=== PATIENT | male | born 1955 | race Caucasian/White ===

== ENCOUNTER → 2020-09-28 09:51 | Outpatient (CLI) | payer MEDICARE, OTHER, SELFPAY ==
--- NOTE | 2020-09-28 10:56 | DI.CT.S_ITS ---
PROCEDURE: CT UE LT WO CON INDICATIONS: Primary osteoarthritis, left shoulder pain TECHNIQUE: Noncontrast 1-1.5 mm thick sections acquired from the acromioclavicular joint to the inferior scapula, with coronal and sagittal reformatting. COMPARISON: [facility], CR, SHOULDER 1VW (LT), 11/05/2009, 13:12. [facility], CR, SHOULDER 1VW (LT), 11/05/2009, 14:02. [facility], CR, SHOULDER MIN 2VW (LT), 11/06/2009, 11:04. [facility], CR, XR SHOULDER 2+ VIEWS BILATERAL, 09/06/2020, 15:57. FINDINGS: Image quality: Excellent. Bones: Postsurgical changes are seen from prior proximal humeral fracture fixation with a lateral plate and screw construct. The metallic hardware is intact. No acute fracture is seen. Degenerative changes are seen at the glenohumeral joint with marginal osteophyte formation, including abutting osteophytes inferiorly that could contribute to osseous impingement. Mild osseous irregularity in the glenoid rim and at the base of the coracoid are most likely related to remote prior trauma. Moderate degenerative changes are seen in the acromioclavicular joint with small osseous fragments at the margins of the joint. Soft tissues: There is a small glenohumeral effusion. Small loose ossifications are seen posterior and superior to the humeral head and within the superior subscapularis recess that may represent small intra-articular loose bodies. The articular cartilages, ligaments, and tendons are not well evaluated with CT. The rotator cuff musculature is normal in bulk. IMPRESSION: 1. Postsurgical changes again seen at the proximal humerus with intact hardware. No acute osseous abnormality is seen. 2. Moderate to severe glenohumeral osteoarthrosis. Moderate acromioclavicular osteoarthrosis. 3. Small glenohumeral effusion with multiple osseous intra-articular loose bodies. Dictated by: Dean Rolle M.D. on 09/28/2020 at 10:58 Approved by: Dean Rolle M.D. on 09/28/2020 at 11:08
== END ==
PROVIDERS: PCP Nurse Practitioner; Referring Provider Nurse Practitioner; Visit Provider Orthopaedic Surgery
DX: M19.012 Primary osteoarthritis, left shoulder (principal); M25.412 Effusion, left shoulder; M24.012 Loose body in left shoulder
CPT/HCPCS: 73200

== ENCOUNTER → 2020-10-17 08:05 | Outpatient (CLI) | payer MEDICARE, OTHER, SELFPAY ==
[2020-10-17 08:56] LABS: Add Manual Diff / Slide Review NO; Basophils Absolute Auto 100 /uL (0-100); Basophils Percent Auto 1.1 % (0-2); Eosinophils Absolute Auto 100 /uL (0-450); Eosinophils Percent Auto 2.8 % (2-4); Hematocrit 41.3 % (41-53); Hemoglobin 14.1 g/dL (13.5-17.5); Lymphocytes Absolute Auto 1300 /uL (1100-4500); Lymphocytes Percent Auto 28.9 % (25-40); Mean Corpuscular HGB Conc 34.1 % (30-36); Mean Corpuscular Volume 90.9 fL (80-100); Monocytes Absolute Auto 400 /uL (0-900); Neutrophils Absolute Auto 2600 /uL (1500-7000); Neutrophils Percent Auto 59.2 % (50-75); Platelet Count 204 X10^3/uL (150-400); Red Blood Cell Count 4.54 X10^6/uL (4.5-5.9); Red Cell Distribution Width 12.7 % (11.6-14.8); White Blood Cell Count 4.5 X10^3/uL (4.5-11.0)
[2020-10-17 09:15] LABS: BUN Creatinine Ratio 20.8 (6-22); Blood Urea Nitrogen 22 mg/dL (9-20); Calcium 9.5 mg/dL (8.4-10.2); Carbon Dioxide 31 mmol/L (22-32); Chloride 103 mmol/L (98-107); Estimated Glomerular Filt Rate > 60.0 mL/min (>60); Glucose 143 mg/dL (80-110); HEMOLYSIS < 15 (0-50); Potassium 3.7 mmol/L (3.4-5.1); Sodium 137 mmol/L (137-145)
== END ==
PROVIDERS: PCP Nurse Practitioner; Referring Provider Orthopaedic Surgery; Visit Provider Orthopaedic Surgery
DX: Z01.818 Encounter for other preprocedural examination (principal); R73.9 Hyperglycemia, unspecified; Z01.812 Encounter for preprocedural laboratory examination
CPT/HCPCS: 36415; 80048; 83036; 85025; 93005; 93010

== ENCOUNTER → 2020-10-22 08:56 | Outpatient (CLI) | payer MEDICARE, OTHER, SELFPAY ==
[2020-10-22 11:23] LABS: COVID19 -Nasal RAPID Negative (Negative)
== END ==
PROVIDERS: PCP Nurse Practitioner; Visit Provider Nurse Practitioner Family
DX: Z20.822 Contact with and (suspected) exposure to COVID-19 (principal)
CPT/HCPCS: 87635

== ENCOUNTER 2020-10-24 06:05 | Day surgery (SDC) | payer MEDICARE, OTHER, SELFPAY ==
[2020-10-24] VITALS (14 sets, daily range): BP systolic 102–144; BP diastolic 54–85; PULSE 66–88; RESP 12–83; TEMP 36–37.1; O2SAT 91–98; BMI 35.6
--- NOTE | 2020-10-24 06:35 | DI.RAD.S_ITS ---
PROCEDURE: XR SHOULDER LT 1V INDICATIONS: post op total shoulder TECHNIQUE: 2 views of the shoulder were acquired. COMPARISON: [facility], CR, XR KNEE 4+ VIEWS RIGHT, 09/07/2020, 14:41. [facility] [place], CR, XR SHOULDER 2+ VIEWS BILATERAL, 09/06/2020, 15:57. FINDINGS: Bones: No fractures or dislocations. No suspicious bony lesions. Visualized ribs appear intact. The previously present fixation plate at the proximal left humerus has been removed and a left humeral head arthroplasty device has been placed. Moderate osteoarthritis at the acromioclavicular joint is again noted. No fracture of [place] bone is present. Soft tissues: No suspicious soft tissue calcifications. IMPRESSION: Expected postoperative appearance after removal of a prior fixation plate and placement of new humeral head arthroplasty at the left shoulder. Osteoarthritis at the AC joint is stable over time, moderate in severity. Dictated by: Adi Russo M.D. on 10/24/2020 at 11:53 Approved by: Adi Russo M.D. on 10/24/2020 at 11:54
[2020-10-24] MEDS: LACTATED RINGERS 1,000 ML 42 ML IV ×2 (07:05→08:50)
[2020-10-24] MEDS: ACETAMINOPHEN 325 MG TABLET 975 MG PO (07:09)
[2020-10-24] MEDS: PREGABALIN 75 MG CAPSULE PO (07:09)
[2020-10-24] MEDS: CELECOXIB 200 MG CAPSULE PO (07:09)
--- NOTE | 2020-10-24 07:33 | PM.PREOP ---
Pre-operative Note COVID-19 COVID-19 status: Negative Result date/Date tested (Pos, Neg/Pending): 10/22/20 Interval Note History & Physical reviewed/Exam performed by Physician: Yes Changes to H&P: No
--- NOTE | 2020-10-24 07:35 | P.OP_ITS ---
Operative Date/Time/Diagnoses Date of procedure: 10/24/20 Time of procedure: 10:38 Pre-op diagnosis: Left shoulder osteoarthritis with retained fracture hardware Post-op diagnosis: same Procedure & Clinicians Procedure: 1. Left total shoulder replacement 2. Left shoulder removal of hardware Same procedure as scheduled: Yes Indications: The patient has had progressively worsening left shoulder pain with radiographic changes consistent with arthritis. There is also a plate present from a prior proximal humerus fracture. Non-operative management has failed and the patient has requested total shoulder replacement. The risks, benefits and alternatives to surgery were discussed with the patient prior to proceeding. Risks discussed included, but were not limited to, failure to relieve pain, stiffness, infection, nerve damage, deep venous thrombosis, pulmonary embolism, stroke, coma, heart attack, permanent paralysis and , as well as the potential need for eventual revision of the prosthetic. Surgeon: Coleman Holliday Enterprise Sales Executive: Charles Townsend Click Yes if Unassisted: No Anesthesia Type: General, Peripheral nerve block and Local Operative Notes Findings: Severe osteoarthritis of the left shoulder with retained hardware. Good bone density for stemless prosthetic. Closure Type: primary Specimen(s): none sent Prosthetic devices, grafts, tissues, transplants, or devices: Implants used in this procedure were manufactured by the [employer] and included an Eclipse medium cage screw, a 49 trunion and a 49/20 humeral head. In addition a large [employer] VaultLock glenoid was implanted. Also a [employer] Speedbridge anchor system was used for subscapularis repair. Applied: implant(s) Estimated Blood Loss (mL): 100 Blood products transfused: none Procedure in detail: The patient was seen in the pre-operative area, where the patient identified the left shoulder as the operative site and this was marked with my initials. The patient received pre-operative antibiotics, underwent an interscalene block, and was taken to the operating room and placed on the operative table in the supine position. After satisfactory anesthesia, a full ?time out? was performed. The patient was repositioned in the ?beach chair? position using a dedicated positioner. All pressure points were well padded, and the knees were slightly bent to prevent tension on the sciatic nerves. The left arm was prepared from the fingers to the base of the neck with ChloroPrep in the usual fashion and draped through sterile drapes. An approximately 15 cm incision was created, starting at the clavicle above the coracoid process and extended towards the deltoid insertion. The prior scar from his fracture fixation was utilized. The deltopectoral interval was used to access the shoulder. The cephalic vein was taken laterally. A self retaining retractor was placed. The upper centimeter of the pectoralis major tendon was released. The ?three sisters? were identified and cauterized. The plate was readily identified. The 6 smooth pegs that went from the plate into the humeral head were removed. We then returned our attention to the total shoulder. The axillary nerve was palpated and protected throughout the case. The biceps was released from its groove and tenodesed over the top of the pectoralis major tendon. The subscapularis was released from the lesser tuberosity with a subscapularis peel and tagged for later repair. The shoulder was dislocated and a cutting guide was used for the proximal humeral osteotomy in 30 degrees of retroversion. The proximal humerus was sized, the central [place] was cored, and the calibrated pin was used to select the depth of the central screw. A proximal humeral protector was then placed. We then removed the self-retaining retractor and placed retractors to access the glenoid. The subscapularis was released with a ?360 degree release? with care being taken to protect the axillary nerve with the inferior portion of this procedure. The remnant of labrum and biceps stump were removed. The appropriate size reamer was chosen with the glenoid sizer, and the guide pin placed. The glenoid was appropriately reamed. High side reaming anteriorly with necessary due to a mild B2 glenoid erosion. The center hole was enlarged. The superior hole and the inferior groove were then created. The trial glenoid was placed with good stability. We then cemented the final implant into place after irrigating the peg holes and drying them with thrombin-soaked Gelfoam. The central peg was coated with bone graft for ingrowth. We returned our attention to the humerus, trunion was placed followed by the central screw cage. The guide for Speedbridge placement was placed and 4 holes for the anchors created. A trial humeral head was applied and a trial reduction performed. Stability was checked with 50% posterior translation, 45? external rotation at the side with the subscapularis held in the repaired position and 70? internal rotation in the ?scarecrow position?. This was felt to be satisfactory and the appropriate implant was opened and impacted on to the trunion. The joint was relocated one final time, it was irrigated and a Speedbridge system used to repair the subscapularis in its anatomic position. The upper edge of the subscapularis was repaired to the leading edge of the supraspinatus with a single aveuci-sm-acwgm Ethibond suture to close the rotator interval. The deltopectoral interval was closed with interrupted 0 Vicryl. The subcutaneous layer was closed with 3-0 Vicryl, and the skin with a running 3-0 V-Lock suture and Dermabond. An Aquacel Ag dressing was applied, the patient?s arm was placed in a sling, and the patient was taken to recovery having tolerated the procedure well. Complications: none Post-operative Condition: stable Disposition: PACU Plan for aftercare: The patient will be maintained on a standard total shoulder replacement protocol with passive range of motion limited to 90 degrees forward flexion, 0 degrees external rotation at the side, 0 degrees abduction and internal rotation to the body. The patient will receive aspirin and sequential compression devices for DVT prophylaxis. The patient will be discharged home when safe for the home environment, likely tomorrow.
[2020-10-24] MEDS: MIDAZOLAM 2 MG/2 ML VIAL IV (07:40)
[2020-10-24] MEDS: fentaNYL 100 MCG/2 ML INJ 50 MCG IV (07:40)
--- NOTE | 2020-10-24 07:51 | SUR.PREOP ---
Block start time [0741] . Monitoring initiated and maintained throughout procedure. Oxygen and medications given per anesthesiologist instructions. Patient remained stable throughout procedure, no adverse reactions noted. Block end time [0748].
[2020-10-24] MEDS: CEFAZOLIN 2 GM/100 ML FROZ.PIGGY IV (07:55)
--- NOTE | 2020-10-24 07:58 | SUR.PREOP ---
Pt to OR in stable condition.
[2020-10-24] MEDS: TRANEXAMIC ACID 1,000 MG VIAL 1000 MG INJ ×2 (08:19→10:10)
--- NOTE | 2020-10-24 08:24 | SUR.OPER ---
Beach chair with Irvingn/Lorelei shoulder positioner. Lower body on padded OR bed. Head in foam padded head cradle, secured with straps. Non-operative arm secured across torso. Pillow under knees. Safety belt at thigh. Cloth tape over blanket over lower legs. Operative arm in control of the surgeon.
[2020-10-24] MEDS: BUPIVACAINE 0.5% W/ EPI (PF) 30 ML VIAL INJ (08:37)
[2020-10-24] MEDS: THROMBIN (RECOMBINANT) 5,000 UNIT VIAL 5000 UNIT TOP (08:38)
--- NOTE | 2020-10-24 11:22 | SUR.PHASEI ---
Report to Yamile WHITEHEAD
[2020-10-24] MEDS: LACTATED RINGERS 1,000 ML 100 ML IV ×2 (12:00→21:52)
--- NOTE | 2020-10-24 12:27 | PC.NURSE ---
Patient A/Ox4. Denies pain in LUE. Notable bleeding through Aquacel dressing, exceeding previously marked area at posterior aspect. New drainage remarked with param lr@1145. CMS intact. Pulses equal bilaterally. Sling intact. Patient on room air, remains 92-95%. Lungs CTA, left side is diminished. IS placed bedside, patient educated on use. Cardiac WNL, patient denies chest pain, SOB, lightheadedness or dizziness. Calf SCD's on bilaterally. Right hand IV site is free of edema and patent, LR @100cc/hr infusing. BT active x 4, last BM 10/24. Patient eating and drinking fluids. Denies nausea. Patient has not voided post-op. Urinal placed within reach, patient instructed to call before getting OOB. Patient verbalized understanding. Call light in reach. remains at bedside.
--- NOTE | 2020-10-24 14:04 | PC.NURSE ---
Patient came to floor with Aquacel dressing that had some notable drainage, bubbling the bottom of the dressing. Charles GARCIA notified. New aquacel dressing placed by PA. If drainage continues, instructions were given to reenforce with ABD pad.
[2020-10-24] MEDS: ACETAMINOPHEN 325 MG TABLET 650 MG PO ×2 (14:53→21:53)
--- NOTE | 2020-10-24 15:46 | PT.IIE ---
Current Diagnoses Primary osteoarthritis, left shoulder (10/24/20) Surgery Performed Operation Date: 10/24/20 07:45 Actual Procedures p Total Shoulder Arthroplasty w/ removal of deep implant(Left) - Coleman Holliday MD Surgical History (Last Updated 10/14/20 @ 15:53 by Lynn Vanessa, RN) History of open reduction and internal fixation (ORIF) procedure Status post cataract extraction of both eyes with insertion of intraocular lens Medical History (Last Updated 10/14/20 @ 15:53 by Lynn Vanessa, RN) Elevated cholesterol with high triglycerides Hypertension Primary osteoarthritis, left shoulder Sleep apnea with use of continuous positive airway pressure (CPAP) Physical Therapy Inpatient Evaluation/Re-Eval M1 PT/OT-IP Prior Functional Status Start: 10/24/20 13:20 Freq: NEEDED Status: Active Protocol: Document 10/24/20 15:16 AW (Rec: 10/24/20 15:46 AW [id number]) Medical Review Prior Functional Status Medical History Reviewed Yes Communication Pt is an effective verbal communicator. Mobility and Gait Pt is active and independent at baseline. He denies any meaningful limit to his mobility. He is right handed. Activities of Daily Living and IADL's Independent Social History Household Members spouse Living Arrangements House Number of Floors (Floors) One Floor Number of Stairs To Enter/Railing? 3 MICK with no railing Home Environment Standard Height Toilet,Walk in Shower,Built-In Shower Seat Employment Status Retired Additional Social History Comment Pt plans to sleep in a recliner when he goes home. 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 M2 PT-IP Current Condition Start: 10/24/20 13:20 Freq: NEEDED Status: Active Protocol: Document 10/24/20 15:16 AW (Rec: 10/24/20 15:46 AW [id number]) Physical Therapy Current Condition Current Condition Evaluation Date 10/24/20 Treatment Diagnosis L TSA; decreased independence with ADL's Onset Date 10/24/20 Precautions Shoulder Precautions Sling,PROM,Internal Rotation to Body,No External Rotation, No Abduction,Forward Flexion to 90 degrees,Pendulums Brace shoulder sling Weight Bearing Status Allowed Weight Bearing Amount (enter % NWB LUE or #) (%) M3 PT-IP Subjective Start: 10/24/20 13:20 Freq: NEEDED Status: Active Protocol: Document 10/24/20 15:16 AW (Rec: 10/24/20 15:46 AW [id number]) Subjective Physical Therapy Visit Type Type Initial Evaluation Visit Start Time 14:45 Visit Stop Time 15:11 Total Visit Minutes 26 Notes Pt's was present throughout evaluation Number of FINANCIAL WRITER Visits 0 Physical Therapy Visit Comments Patient Comments Pt is feeling antsy and would like to get up out of bed Therapy Pain Assessment Pain When Pain Assessed During Mobility Pain Present Pain Present Denied Pain M4 PT-IP Mobility and Gait Start: 10/24/20 13:20 Freq: NEEDED Status: Active Protocol: Document 10/24/20 15:16 AW (Rec: 10/24/20 15:46 AW [id number]) PT-Bed Mobility Assessment Supine to Sit Supine to Sit Contact Guard Assistance, Bedrails Scooting Scooting to Edge of Bed Standby Assistance PT-Transfer Assessment Sit to and From Stand Sit to and from Stand Standby Assistance Equipment Transfer Assistive Device Gait Belt Orthotic/Prosthetic Devices or Brace: Yes Transfers Transfer Destination Toilet Transfer Technique Stand Step Pivot Transfer Ability Level of Assist Standby Assistance Comments Mobility Comments Pt was reclined in the bed as PT arrived. BP was 100/62 HR 75 SpO2 91% on room air. Educated pt on shoulder precautions prior to mobilizing. Pt completed supine to sit CGA and sat EOB without complaint of dizziness . He stood and walked to the sink for sling adjustment and education. PT determined the sling applied intraoperatively was too small. Pt sat on the bed as PT left to obtain a bigger size. Pt held his left arm with right hand as PT replaced the sling with larger size and instructed pt and his on proper fit and donning/doffing. Pt ambulated around the room SBA and then transferred to the toilet before ultimately transferring to the bedside chair. Pt was left with call light and all needs in reach. His remained in the room. Gait Assessment Gait Gait Assistance Required: Standby Assistance Distance (Feet) 50 Assistive Devices Assistive Device Gait Belt Orthotic/Prosthetic Devices or Brace: Yes Gait Deviations General Gait Pattern Within Normal Limits Stair Climbing Assessment Comments Stair Climbing Comments Not assessed. PT-Balance Assessment Sitting Balance and Reactions Static Sitting Balance Ability Good Dynamic Sitting Balance Ability Good Standing Balance and Reactions Static Standing Balance Ability Good Dynamic Standing Balance Ability Good Device Used no AD M5 PT-IP Objective Assessments Start: 10/24/20 13:20 Freq: NEEDED Status: Active Protocol: Document 10/24/20 15:16 AW (Rec: 10/24/20 15:46 AW [id number]) Orientation Orientation/Cognition Level of Alertness Alert Orientation Name,Date,Day of Week,Place, Situation Language Function Ability No Deficits Noted Safety Awareness Understands Safety Issues Memory Description No Deficits Noted Gross Range of Motion Upper Extremity ROM Assessment Left Impaired Lower Extremity ROM Assessment Within Functional Limits Strength Upper Extremity Strength Assessment Left Impaired Lower Extremity Strength Assessment Within Functional Limits Comments Strength Comments right shoulder 4+/5 Sensation Assessment Sensation Gross Sensation Right UE Impaired Light Touch Impaired Sensation Description Numbness Comments Sensation Comments Pt has active movement of all five digits and is starting to have return of sensation distally. Other Assessments Other Other Assessments Pt has strike-through to Aquacel dressing which is already marked by nursing. M6 PT-IP Treatment Start: 10/24/20 13:20 Freq: NEEDED Status: Active Protocol: Document 10/24/20 15:16 AW (Rec: 10/24/20 15:46 AW [id number]) Physical Therapy Treatment Exercises Exercises Shoulder Pendulums,Elbow Flexion/Extension,Wrist ROM, Hand ROM Education Education Provided Precautions,Post-Op Packet, Safety Brace Education Donning,[place],Patient, Caregiver Equipment Issued Equipment Type and Company XL sling from [employer] to replace Large sling (placed intraoperatively) for improved fit and support. Other Treatments Other Treatment Performed Provided education on role of PT, plan of care, post-op precautions, and ADL management with shoulder precautions. M7 PT-IP Assessment and Plan Start: 10/24/20 13:20 Freq: NEEDED Status: Active Protocol: Document 10/24/20 15:16 AW (Rec: 10/24/20 15:46 AW [id number]) PT Summary Assessment and Plan Potential Rehabilitation Potential Excellent Status of Condition at Evaluation Evolving Summary Impairments Pain,ROM,Strength,Sensation, Bed Mobility,Transfers Assessment Summary Castillo is a 65 yo man seen for PT evaluation on POD0 following left anatomic TSA. He is independent in all regards at baseline. On evaluation, pt required SBA to CGA for all mobility. He has good understanding of post-op precautions and he is already scheduled for outpatient PT in two weeks. Pt will be safe to discharge home once medically cleared. PT will follow up in the AM for more extensive mobility evaluation and to reinforce education on precautions. Goals Bed Mobility Goal Independent Transfer Goal Independent Gait Goal Independent Gait Distance 200 Other Goals - up/down 3 steps no rail SBA Days to Meet Goals 1 Frequency of Treatment Frequency Of Treatment Twice a Day Treatment Plan Physical Therapy Treatment Plan Bed Mobility Training,Transfer Training,Gait Training, Therapeutic Exercise,Balance Retraining,Post Op Education, Discharge Planning,Hot or Cold Pack Recommendations To Nursing Amount of Assist Needed Standby Assistance Discharge Recommendations PT Discharge Recommendations Home with Assistance, Outpatient PT Transportation Needs at Discharge Private Vehicle
[2020-10-24] MEDS: DOCUSATE 100 MG CAPSULE PO (21:53)
[2020-10-24] MEDS: OXYCODONE IR 5 MG TABLET PO (21:53)
[2020-10-24] MEDS: ASPIRIN EC 81 MG TABLET PO (21:53)
--- NOTE | 2020-10-24 23:32 | PC.NURSE ---
Left radial pulse palpable; sensation to LUE returned throughout the shift; mild pain to left axilla, PO oxycodone at bedtime; Aquacell drsg with increased drainage but still not requiring reinforcement; CPAP for sleep
[2020-10-25 00:23] VITALS: BP 124/65; PULSE 72
[2020-10-25] MEDS: LOSARTAN 25 MG TABLET PO (00:23)
[2020-10-25] MEDS: METOPROLOL ER 50 MG TABLET 100 MG PO (00:23)
[2020-10-25] MEDS: hydrOXYzine pamoate 25 MG CAPSULE PO (00:26)
--- NOTE | 2020-10-25 02:06 | PC.NURSE ---
Addendum entered by Allyssa Man R.N. 10/25/20 05:30: 5mg Oxycodone not lasting full 3 hours and pain now up to 7/10 so medicated with 10mg Oxycodone. Addendum entered by Allyssa Man R.N. 10/25/20 02:33: Complains of 4/10 achy pain in left UE; medicated with Oxycodone. Original Note: 2340: patient is alert and oriented. Breath sounds CTA with RA sat of 96%. HRR. Denies nausea. BT present and is passing flatus. Denies dysuria, frequency or urgency with urination. Aquacel dressing to left shoulder intact; drainage has increased outside previously drawn markings but no leakage and surrounding skin is bruised. Does have residual numbness in left axilla and shoulder. Good radial pulse and cap refill and able to move all fingers. Has sling to left UE. Is able to move himself in bed. Stated pain was only 2/10 so was provided and ice pack as had Oxycodone at 2152 and then later was medicated with Vistaril as he indicated arm was waking up more. Gait not assessed at this time but reportedly gets out of bed with SBA and is steady on feet. Fall risk score is low. Wearing bilateral calf SCD's.
[2020-10-25] MEDS: OXYCODONE IR 5 MG TABLET PO ×2 (02:31→09:43)
[2020-10-25] MEDS: OXYCODONE IR 10 MG TABLET PO (05:29)
[2020-10-25 06:00] VITALS: BP 114/66; PULSE 69; RESP 16; TEMP 36.9; O2SAT 96
--- NOTE | 2020-10-25 07:39 | PM.DS.1 ---
History of Present Illness History of Present Illness Date Patient Seen: 10/25/20 Time Patient Seen: 07:39 Chief complaint: IP Narrative: The history and physical is contained in the chart previously completed note. Please refer to that note for this information. Discharge Providers Provider Date of admission: 10/24/20 06:05 Discharge Date: 10/25/20 Primary care physician: JAY Martinez Consults: 10/24/20 11:21 Consult to Discharge Planning Routine Comment: Consult to Physical Therapy Evaluate & Treat Comment: Physician Instructions: Pendulums, PROM 90 FF, 0 ABD, 0 ER, IR to body Consult to Respiratory Therapy Evaluate & Treat Comment: Physician Instructions: Evaluate and treat Discharge provider: Coleman Holliday MD Summary Hospital Course Discharge Diagnosis: 1. Left shoulder osteoarthritis 2. Retained hardware after prior proximal humerus fracture Hospital Course: The patient was admitted to the hospital and taken directly to the operating room on October 24, 2020. He underwent a left total shoulder replacement and removal of hardware without complication. Postoperatively he was comfortable. On postop day 1 he had return of all light touch sensation in the left upper extremity. His wound had been draining and a suction dressing was applied. Status at Discharge Cognitive/behavioral status at discharge: oriented Functional status at discharge: independent ambulation Overall status at discharge: patient is progressing back to baseline Time Spent with Patient Time spent: Less than 30 minutes Exam Vital Signs (past 8 hours): - 10/24/20 23:52 10/25/20 00:23 10/25/20 06:00 Temperature 98.8 F 98.5 F Pulse Rate 72 72 69 Respiratory Rate 16 16 Blood Pressure 124/65 124/65 114/66 Pulse Oximetry 96 96 Oxygen Delivery Method Room Air Oxygen Flow Rate 0 Narrative Exam Narrative: Left upper extremity wound is dressed with drainage apparent on the bandage. Light touch intact in the radial, ulnar, median, muscular cutaneous, axillary nerve distributions. He can extend his thumb, abduct his thumb, abduct his fingers, and can fire his biceps and deltoid. [facility] Medical History (Updated 10/14/20 @ 15:53 by Lynn Vanessa RN) Elevated cholesterol with high triglycerides Hypertension Primary osteoarthritis, left shoulder Sleep apnea with use of continuous positive airway pressure (CPAP) Surgical History (Updated 10/14/20 @ 15:53 by Lynn Vanessa RN) History of open reduction and internal fixation (ORIF) procedure Status post cataract extraction of both eyes with insertion of intraocular lens Social History household members: spouse Smoking Status: Never smoker alcohol intake: never Discharge Assessment & Plan Assessment and Plan Assessment: Stable postoperative day 1 status post left total shoulder replacement and removal of deep hardware. He does have some drainage from the wound but this appears to be sanguinous and does not appear to be excessive. Plan of Treatment: We will place a suction drainage system today. He will be discharged home. He will follow up in 10-14 days although he may need to come in for a dressing change prior to that. Discharge prescriptions have been sent in for oxycodone and hydroxyzine. In addition he has been instructed in the use of Tylenol, and anti-inflammatories for pain. He will be instructed to use aspirin for DVT prophylaxis. Discharge Plan Discharge Plan Patient Disposition: Home Discharge orders & Medications Prescriptions: New aspirin 81 mg Tablet,Delayed Release (Dr/Ec) 81 mg PO BID 42 Days Qty: 84 RF: 0 oxycodone 5 mg Tablet 5 mg PO Q4H PRN (Reason: Pain, Moderate (4-6)) Qty: 40 RF: 0 hydroxyzine pamoate 25 mg Capsule 25 mg PO Q6HR PRN (Reason: Nausea) Qty: 30 RF: 0 Continued multivitamin Tablet 1 tab PO DAILY RF: 0 meloxicam 15 mg Tablet 15 mg PO DAILY RF: 0 fenofibrate micronized 200 mg Capsule 200 mg PO DAILY RF: 0 acetaminophen 650 mg Tablet Extended Release 1,300 mg PO DAILY PRN (Reason: Pain) RF: 0 losartan 25 mg Tablet 25 mg PO DAILY RF: 0 hydrochlorothiazide 25 mg Tablet 25 mg PO DAILY RF: 0 glucosamine-chondroitin [Osteo Bi-Flex] 250-200 mg Tablet 2 tab PO DAILY RF: 0 metoprolol succinate 100 mg Capsule,Sprinkle,Er 24hr 100 mg PO DAILY RF: 0 Discontinued aspirin 81 mg Capsule,Delayed Release(Dr/Ec) 81 mg PO DAILY RF: 0 Follow up/Referrals: Radha Bellamy ARNP [Primary Care Provider] - Coleman Holliday MD [Physician] - 2 Weeks Discharge Health Status Multidrug resistant organism: No MDRO Diet/Activity/Treatments Diet: Diet as Tolerated and Regular Activity: You may use your left hand in front of your body below shoulder level. Lift no more than 1-2 lb with your left hand. Stay in the sling except for pendulum exercises. Cold/Heat Therapy: You may apply ice for 15 minutes every hour as needed for pain control. Skin/Wound/Dressing Care Report to your healthcare provider any signs of infection, such as:: chills, fever, night sweats, increased pain, unusual drainage and unusual redness Dressing: Leave the dressing intact until your postoperative follow-up. You may shower with the dressing in place as long as you undo the battery pack. If the center strip of the dressing becomes saturated, please call the office to have it changed. Visit Report/Discharge Packet Instructions: DI for Prescription Opioid Use, DI for Shoulder Replacement Stand Alone Forms: Surgery Discharge Discharge Data Primary Care Provider: Radha Bellamy
[2020-10-25 08:34] VITALS: BP 113/64; PULSE 75; RESP 16; TEMP 36.5; O2SAT 96
[2020-10-25 08:41] LABS: Hematocrit 37.3 % (41-53); Hemoglobin 12.6 g/dL (13.5-17.5)
--- NOTE | 2020-10-25 09:26 | PT.IPTN ---
Current Diagnoses Primary osteoarthritis, left shoulder (10/24/20) Surgery Performed Operation Date: 10/24/20 07:45 Actual Procedures p Total Shoulder Arthroplasty w/ removal of deep implant(Left) - Coleman Holliday MD Physical Therapy Treatment Note M2 PT-IP Current Condition Start: 10/24/20 13:20 Freq: NEEDED Status: Active Protocol: Document 10/24/20 15:16 AW (Rec: 10/24/20 15:46 AW [id number]) Physical Therapy Current Condition Current Condition Evaluation Date 10/24/20 Treatment Diagnosis L TSA; decreased independence with ADL's Onset Date 10/24/20 Precautions Shoulder Precautions Sling,PROM,Internal Rotation to Body,No External Rotation, No Abduction,Forward Flexion to 90 degrees,Pendulums Brace shoulder sling Weight Bearing Status Allowed Weight Bearing Amount (enter % NWB LUE or #) (%) M3 PT-IP Subjective Start: 10/24/20 13:20 Freq: NEEDED Status: Active Protocol: Document 10/25/20 09:26 AW (Rec: 10/25/20 10:14 AW [id number]) Subjective Physical Therapy Visit Type Type Treatment Note Visit Start Time 09:16 Visit Stop Time 09:26 Total Visit Minutes 10 Notes Pt's present Number of WOOD HEEL FLAP TRIMMER Visits 0 Physical Therapy Visit Comments Patient Comments Pt is up and moving around the room, preparing for discharge . Therapy Pain Assessment Pain When Pain Assessed During Mobility Pain Present Pain Present Pain Reported Location l shoulder Intensity 2 Scale Used Numeric (0 - 10) M4 PT-IP Mobility and Gait Start: 10/24/20 13:20 Freq: NEEDED Status: Active Protocol: Document 10/25/20 09:26 AW (Rec: 10/25/20 10:14 AW [id number]) PT-Transfer Assessment Sit to and From Stand Sit to and from Stand Independent Transfer Ability Level of Assist Independent Comments Mobility Comments Pt is mobilizing in his room independently with shoulder sling applied appropriately. Gait Assessment Gait Gait Assistance Required: Standby Assistance Distance (Feet) 150 Assistive Devices Assistive Device Gait Belt Orthotic/Prosthetic Devices or Brace: Yes Gait Deviations General Gait Pattern Within Normal Limits Stair Climbing Assessment Evaluation Level of Assist On Stairs Standby Assistance Devices Stair Climbing Assistive Devices None Technique/Endurance Stair Climbing Direction Ascend and Descend Stair Climbing Technique Step Over Step Number of Steps Climbed 3 Stair Climbing Set # Repetitions (reps) 2 Comments Stair Climbing Comments Good safety awareness. PT-Balance Assessment Sitting Balance and Reactions Static Sitting Balance Ability Good Dynamic Sitting Balance Ability Good Standing Balance and Reactions Static Standing Balance Ability Good Dynamic Standing Balance Ability Good Device Used no AD M5 PT-IP Objective Assessments Start: 10/24/20 13:20 Freq: NEEDED Status: Active Protocol: Document 10/24/20 15:16 AW (Rec: 10/24/20 15:46 AW [id number]) Orientation Orientation/Cognition Level of Alertness Alert Orientation Name,Date,Day of Week,Place, Situation Language Function Ability No Deficits Noted Safety Awareness Understands Safety Issues Memory Description No Deficits Noted Gross Range of Motion Upper Extremity ROM Assessment Left Impaired Lower Extremity ROM Assessment Within Functional Limits Strength Upper Extremity Strength Assessment Left Impaired Lower Extremity Strength Assessment Within Functional Limits Comments Strength Comments right shoulder 4+/5 Sensation Assessment Sensation Gross Sensation Right UE Impaired Light Touch Impaired Sensation Description Numbness Comments Sensation Comments Pt has active movement of all five digits and is starting to have return of sensation distally. Other Assessments Other Other Assessments Pt has strike-through to Aquacel dressing which is already marked by nursing. M6 PT-IP Treatment Start: 10/24/20 13:20 Freq: NEEDED Status: Active Protocol: Document 10/25/20 09:26 AW (Rec: 10/25/20 10:14 AW [id number]) Physical Therapy Treatment Other Treatments Other Treatment Performed Reviewed precautions with pt who was able to teach back and to demonstrate donning/ doffing sling with assist from his . M7 PT-IP Assessment and Plan Start: 10/24/20 13:20 Freq: NEEDED Status: Active Protocol: Document 10/25/20 09:26 AW (Rec: 10/25/20 10:14 AW [id number]) PT Summary Assessment and Plan Potential Rehabilitation Potential Excellent Status of Condition at Evaluation Stable Summary Progress Towards Goals Progressing Toward Goals Assessment Summary Castillo understands all post-op precautions and is proficient with sling management. He is independent to SBA with all mobility and is safe for discharge home with assist and outpatient PT. Goals Bed Mobility Goal Independent Transfer Goal Independent Gait Goal Independent Gait Distance 200 Other Goals - up/down 3 steps no rail SBA Days to Meet Goals 1 Frequency of Treatment Frequency Of Treatment Discharge Treatment Plan Physical Therapy Treatment Plan Bed Mobility Training,Transfer Training,Gait Training, Therapeutic Exercise,Balance Retraining,Post Op Education, Discharge Planning,Hot or Cold Pack Recommendations To Nursing Amount of Assist Needed Standby Assistance Discharge Recommendations PT Discharge Recommendations Home with Assistance, Outpatient PT Transportation Needs at Discharge Private Vehicle
--- NOTE | 2020-10-25 09:57 | CM.DANOTE ---
DCP: Case received, EMR reviewed and met with patient. Introduced self and role. Was able to obtain information from patient regarding his baseline activity status prior to hospitalization. DCP assessment completed with information currently available. Patient is a 65 year old male who admitted yesterday morning to the care of the orthopedic team. PCP: JAY Martinez. Payer: Medicare/[employer]. Patient came to the hospital via private vehicle for a surgical procedure. He had left shoulder arthroplasty. Patient has history of left shoulder osteoarthritis. Met with patient in his room. He is alert and oriented, a retired nurse. He resides in [place] with his spouse, Danni, who is also a retired nurse. Patient is independent at baseline, and is planning on going to Ortho outpatient P.T. P: Patient is to be discharged home today after working with P.T. Snehal Canseco RN/Glass Handler
--- NOTE | 2020-10-25 11:03 | PC.NURSE ---
VSS. Pain 11/09, given 5mg PRN Oxycodone with relief. Peripheral IV removed. Given discharge instructions, questions answer. Dressing changed by PA. Escorted off of unit via wheelchair to vehicle, transporting him home.
== END 2020-10-25 11:00 | disposition home or self-care (01) ==
LOC: AC 10-25 07:39 → OR 10-25 11:20
PROVIDERS: PCP Nurse Practitioner; Referring Provider Nurse Practitioner; Visit Provider Orthopaedic Surgery
PROC: (CPT 23472; principal; 2020-10-24 07:45)
DX: M19.012 Primary osteoarthritis, left shoulder (principal); E66.9 Obesity, unspecified; I10 Essential (primary) hypertension; G47.33 Obstructive sleep apnea (adult) (pediatric); E11.9 Type 2 diabetes mellitus without complications; Z68.36 Body mass index [BMI] 36.0-36.9, adult; Z20.822 Contact with and (suspected) exposure to COVID-19
CPT/HCPCS: 23472; 36415; 64450; 73020; 85014; 85018; 87635; 97116; 97161; C1776; C9803; J0690; J1100; J2250; J2405; J3010

== ENCOUNTER → 2021-06-15 10:59 | Outpatient (CLI) | payer MEDICARE, OTHER, SELFPAY ==
[2020-10-24 11:28] VITALS: BMI 35.6
--- NOTE | 2021-06-15 11:12 | DI.CT.S_ITS ---
PROCEDURE: CT UE RT WO CON INDICATIONS: Pain in right shoulder TECHNIQUE: Noncontrast 1-1.5 mm thick sections acquired from the acromioclavicular joint to the inferior scapula, with coronal and sagittal reformatting. COMPARISON: None. FINDINGS: Image quality: Excellent. Bones: Flattened contour the humeral head with large inferior osteophyte, which may reflect posttraumatic injury with subsequent degenerative change. Intra-articular bodies are seen within the superior glenohumeral articulation, measuring up to 6.5 mm. An additional 1.2 cm lesion is seen in the superior subscapularis recess, also consistent with intra-articular body. Moderate arthrosis of the acromioclavicular joint. Soft tissues: Calcific density in the expected location of the supraspinatus, compatible calcific tendinopathy. IMPRESSION: At least moderate degenerative changes of the shoulder as detailed above. Dictated by: Monroe Raygoza M.D. on 06/15/2021 at 11:56 Approved by: Monroe Raygoza M.D. on 06/15/2021 at 12:02
== END ==
PROVIDERS: PCP Nurse Practitioner; Referring Provider Orthopaedic Surgery; Visit Provider Orthopaedic Surgery
DX: M25.511 Pain in right shoulder (principal); M19.011 Primary osteoarthritis, right shoulder
CPT/HCPCS: 73200

== ENCOUNTER → 2021-07-14 08:37 | Outpatient (CLI) | payer MEDICARE, OTHER, SELFPAY ==
[2020-10-24 11:28] VITALS: BMI 35.6
[2021-07-14 09:48] LABS: Add Manual Diff / Slide Review NO; Basophils Absolute Auto 100 /uL (0-100); Basophils Percent Auto 1.2 % (0-2); Eosinophils Absolute Auto 200 /uL (0-450); Hematocrit 41.7 % (41-53); Lymphocytes Absolute Auto 1500 /uL (1100-4500); Lymphocytes Percent Auto 31.6 % (25-40); Mean Corpuscular HGB Conc 33.5 % (30-36); Mean Corpuscular Hemoglobin 29.8 PG (26-34); Mean Corpuscular Volume 88.8 fL (80-100); Monocytes Absolute Auto 300 /uL (0-900); Monocytes Percent Auto 7.4 % (3-14); Neutrophils Absolute Auto 2600 /uL (1500-7000); Neutrophils Percent Auto 55.8 % (50-75); Platelet Count 239 X10^3/uL (150-400); Red Blood Cell Count 4.69 X10^6/uL (4.5-5.9); Red Cell Distribution Width 13.3 % (11.6-14.8); White Blood Cell Count 4.6 X10^3/uL (4.5-11.0)
[2021-07-14 10:01] LABS: Hemoglobin A1C% w Est Avg Glu 5.6 % (4.0-6.0)
[2021-07-14 10:08] LABS: BUN Creatinine Ratio 16.5 (6-22); Blood Urea Nitrogen 19 mg/dL (9-20); Calcium 9.9 mg/dL (8.4-10.2); Carbon Dioxide 28 mmol/L (22-32); Chloride 103 mmol/L (98-107); Estimated Glomerular Filt Rate > 60.0 mL/min (>60); Glucose 108 mg/dL (80-110); HEMOLYSIS < 15 (0-50); Potassium 4.7 mmol/L (3.4-5.1); Sodium 141 mmol/L (137-145)
== END ==
PROVIDERS: PCP Nurse Practitioner; Referring Provider Orthopaedic Surgery; Visit Provider Orthopaedic Surgery
DX: R73.9 Hyperglycemia, unspecified (principal); Z01.812 Encounter for preprocedural laboratory examination; Z01.818 Encounter for other preprocedural examination; M25.511 Pain in right shoulder
CPT/HCPCS: 36415; 80048; 83036; 85025; 93005; 93010

== ENCOUNTER → 2021-07-28 09:55 | Outpatient (CLI) | payer MEDICARE, OTHER, SELFPAY ==
[2020-10-24 11:28] VITALS: BMI 35.6
[2021-07-28 11:15] LABS: COVID19 -Nasal RAPID Negative (Negative)
== END ==
PROVIDERS: PCP Nurse Practitioner; Visit Provider Nurse Practitioner Family
DX: Z20.822 Contact with and (suspected) exposure to COVID-19 (principal)
CPT/HCPCS: 87635; C9803

== ENCOUNTER 2021-08-01 11:21 | Inpatient (IN) | payer MEDICARE, OTHER, SELFPAY ==
[2020-10-24 11:28] VITALS: BMI 35.6
[2021-07-24 07:50] VITALS: BMI 32.6
[2021-07-31] VITALS (11 sets, daily range): BP systolic 99–125; BP diastolic 55–84; PULSE 56–90; RESP 10–19; TEMP 36.2–36.7; O2SAT 90–99; BMI 32.6
--- NOTE | 2021-07-31 11:07 | PM.PREOP ---
Pre-operative Note COVID-19 COVID-19 status: Negative Result date/Date tested (Pos, Neg/Pending): 07/28/21 Interval Note History & Physical reviewed/Exam performed by Physician: Yes Changes to H&P: No
[2021-07-31] MEDS: ACETAMINOPHEN 325 MG TABLET 975 MG PO (11:24)
[2021-07-31] MEDS: CELECOXIB 200 MG CAPSULE PO (11:24)
[2021-07-31] MEDS: PREGABALIN 75 MG CAPSULE PO (11:24)
[2021-07-31] MEDS: LACTATED RINGERS 1,000 ML 42 ML IV ×2 (11:25→13:53)
[2021-07-31] MEDS: CEFAZOLIN 2 GM/20 ML SYRINGE IV (12:21)
[2021-07-31] MEDS: TRANEXAMIC ACID 1,000 MG VIAL 1000 MG INJ ×2 (12:23→13:48)
--- NOTE | 2021-07-31 12:42 | SUR.PREOP ---
Block start time [1158] . Time out completed. Monitoring initiated and maintained throughout procedure. Oxygen 2l placd in nares. Medications given by Dr Ellis. Patient remained stable throughout procedure, no adverse reactions noted. Block end time [1203] Pt transported to OR in stable condition.
--- NOTE | 2021-07-31 12:46 | PM.PROC.1 ---
Procedures Date/Time Date of procedure: 07/31/21 Time of procedure: 11:55 General Procedure description: Ultrasound guided interscalene brachial plexus nerve block for post op pain control after right total shoulder arthroplasty by Dr. Holliday. Risk and benefits of procedure discussed with patient. ASA monitoring applied to patient. O2 given via nasal cannula. 1 mg Versed and 50 mcg fentanyl given for procedural sedation. Skin site was prepped with chlorhexidine and allowed to fully dry. Sterile gloves, mask, hat and probe cover were used to maintain sterility. 2% lidocaine and 30ga needle was used to make a small skin wheal at needle insertion site. Under ultrasound guidance, a 21ga 50mm Pajunk needle was directed into the interscalene groove (middle/anterior scalenes) near the brachial plexus. Patient reported no parasthesias. After negative aspiration, 20 mL 0.5% ropivacaine and 10mg dexamethasone were injected around brachial plexus. Patient tolerated procedure well.
[2021-07-31] MEDS: BUPIVACAINE 0.5% (PF) VIAL 30 ML INJ (12:50)
--- NOTE | 2021-07-31 12:51 | SUR.OPER ---
Beach chair with Schlein shoulder positioner. Lower body on padded OR bed. Head in foam padded head cradle, secured with straps. Non-operative arm secured <90 degrees abduction. Pillow under knees. gel pad under heels. Safety belt at thigh. Cloth tape over blanket over lower legs. Operative arm in control of the Surgeon.
[2021-07-31] MEDS: THROMBIN (RECOMBINANT) 5,000 UNIT VIAL 5000 UNIT TOP (13:24)
[2021-07-31] MEDS: EPINEPHrine 1 MG/ML 0.15 MG INJ (13:25)
--- NOTE | 2021-07-31 14:16 | DI.RAD.S_ITS ---
PROCEDURE: XR SHOULDER RT 1V INDICATIONS: Post op total shoulder TECHNIQUE: AP view of the shoulder were acquired. COMPARISON: [facility], CT, CT UE RT WO CON, 06/15/2021, 11:06. FINDINGS: Bones: No acute, displaced fracture. Interval right shoulder arthroplasty. No evidence of hardware compromise. Osteophytosis about the glenoid. No suspicious bony lesions. Visualized ribs appear intact. Soft tissues: No suspicious soft tissue calcifications. IMPRESSION: No significant abnormality. Dictated by: Monroe Raygoza M.D. on 07/31/2021 at 14:40 Approved by: Monroe Raygoza M.D. on 07/31/2021 at 14:43
--- NOTE | 2021-07-31 14:17 | P.OP_ITS ---
Operative Date/Time/Diagnoses Date of procedure: 07/31/21 Time of procedure: 14:17 Pre-op diagnosis: Right shoulder osteoarthritis Post-op diagnosis: same Procedure & Clinicians Procedure: Right total shoulder replacement Same procedure as scheduled: Yes Indications: The patient has had progressively worsening right shoulder pain with radiog raphic changes consistent with arthritis. Non-operative management has failed and the patient has requested total shoulder replacement. The risks, benefits and alternatives to surgery were discussed with the patient prior to proceeding. Risks discussed included, but were not limited to, failure to relieve pain, stiffness, infection, nerve damage, deep venous thrombosis, pulmonary embolism, stroke, coma, heart attack, permanent paralysis and , as well as the potential need for eventual revision of the prosthetic. Surgeon: Coleman Holliday Film Splicer: Charles Townsend Click Yes if Unassisted: No Anesthesia Type: General, Peripheral nerve block and Local Operative Notes Findings: Severe osteoarthritis with flattening of the humeral head, a very large inferior humeral osteophyte and a type B 3 glenoid. Closure Type: primary Specimen(s): none sent Prosthetic devices, grafts, tissues, transplants, or devices: * Implants used in this procedure were manufactured by the [employer] and included an Eclipse stemless total shoulder system with a medium cage screw, a 49 mm trunion, a 49/20 humeral head, a large VaultLock glenoid and a SpeedBridge system with 4 SwiveLock anchors for subscapularis closure. Applied: implant(s) Estimated Blood Loss (mL): 100 Blood products transfused: none Procedure in detail: The patient was seen in the pre-operative area, where the patient identified the right shoulder as the operative site and this was marked with my initials. The patient received pre-operative antibiotics, underwent an interscalene block, and was taken to the operating room and placed on the operative table in the supine position. After satisfactory anesthesia, a full ?time out? was performed. The patient was repositioned in the ?beach chair? position using a dedicated positioner. All pressure points were well padded, and the knees were slightly bent to prevent tension on the sciatic nerves. The right arm was prepared from the fingers to the base of the neck with ChloroPrep in the usual fashion and draped through sterile drapes. An approximately 15 cm incision was created, starting at the clavicle above the coracoid process and extended towards the deltoid insertion. The deltopectoral interval was used to access the shoulder. The cephalic vein was taken laterally. A self retaining retractor was placed. The upper centimeter of the pectoralis major tendon was released. The ?three sisters? were identified and cauterized. The axillary nerve was palpated and protected throughout the case. The biceps was released from its groove and tenodesed over the top of the pectoralis major tendon. The subscapularis was released from the lesser tuberosity with a subscapularis peel and tagged for later repair. The shoulder was dislocated and a cutting guide was used for the proximal humeral osteotomy in 30 degrees of retroversion. The very large proximal humeral osteophyte was then carefully removed. The proximal humerus sizing guide was applied and the central score was created. The depth for the cage screw was measured at a large which would hit the cortex so a medium was chosen. A proximal humeral protector was then placed. We then removed the self-retaining retractor and placed retractors to access the glenoid. The subscapularis was released with a ?360 degree release? with care being taken to protect the axillary nerve with the inferior portion of this procedure. The remnant of labrum and biceps stump were removed. The appropriate size reamer was chosen with the glenoid sizer, and the guide pin placed. The glenoid was appropriately reamed, which involved high side reaming of the anterior glenoid to correct the increased retroversion. The central hole was enlarged and the peripheral guide placed. The inferior slot and the superior peg hole were created. The trial glenoid was placed with good stability. We then cemented the final implant into place after irrigating the peg holes and drying them with thrombin-soaked Gelfoam. The central peg was coated with bone graft to allow ingrowth. We returned our attention to the humerus, and the protector was removed. The appropriate size trunion was tamped into position and the central cage screw tightened to fix the trunion to the proximal humerus. A trial humeral head was applied and a trial reduction performed. Stability was checked with 50% posterior translation with spontaneous reduction, 45? external rotation at the side with the subscapularis held in the repaired position an approximately 70? of internal rotation in the ?scarecrow position?. This was felt to be satisfactory and the appropriate implants were opened. Using the appropriate guide to prevent impingement on the cage screw, the awl was used to place 4 holes for the SpeedBridge system. The humeral head was applied to the previously placed trunion and screw. The joint was relocated one final time. The joint was irrigated and the subscapularis repaired using the SpeedBridge system for a double row repair. The top of the subscapularis was closed to the leading edge of the supraspinatus with a figure of 8 #2 Ethibond to close the rotator interval. The deltopectoral interval was closed with interrupted 0 Vicryl. The subcutaneous layer was closed with 3-0 Vicryl, and the skin with a running 3-0 V-Lock suture and Dermabond. An Aquacel Ag dressing was applied, the patient?s arm was placed in a sling, and the patient was taken to recovery having tolerated the procedure well. Complications: none Post-operative Condition: stable Disposition: PACU Plan for aftercare: The patient will be allowed to use his hand in front of his torso below shoulder level to lift 1-2 lb. He will largely remain in the sling until postoperative follow-up. He will not be allowed to drive for 6 weeks. He will likely be discharged tomorrow.
--- NOTE | 2021-07-31 14:24 | SUR.PHASEI ---
Pt arrives PACU breathing unassisted. Report from CHARLEY Henderson and Dr Ellis, all questions answered. Pt placed on 2L O2 [place] for sats below 90%.
--- NOTE | 2021-07-31 15:09 | SUR.PHASEI ---
Pt transported in hemodynamically stable condition to room 209 with 2 RNs. Beddside report to CHARLEY Bey, all questions answered.
[2021-07-31] MEDS: LACTATED RINGERS 1,000 ML 100 ML IV (15:21)
[2021-07-31] MEDS: ACETAMINOPHEN 325 MG TABLET 650 MG PO ×2 (15:21→20:57)
[2021-07-31] MEDS: METFORMIN 850 MG TABLET PO (17:17)
[2021-07-31] MEDS: IBUPROFEN 400 MG TABLET PO (20:56)
[2021-07-31] MEDS: DOCUSATE 100 MG CAPSULE PO (20:57)
[2021-07-31] MEDS: ASPIRIN EC 81 MG TABLET PO (20:57)
[2021-07-31] MEDS: OXYCODONE IR 5 MG TABLET PO (22:50)
[2021-08-01] MEDS: LACTATED RINGERS 1,000 ML 100 ML IV (00:13)
[2021-08-01 00:15] VITALS: BP 101/53; PULSE 79; RESP 18; TEMP 36.5; O2SAT 91
[2021-08-01] MEDS: IBUPROFEN 400 MG TABLET PO ×2 (04:23→08:37)
[2021-08-01 05:47] LABS: Hematocrit 34.6 % (41-53); Hemoglobin 11.9 g/dL (13.5-17.5)
--- NOTE | 2021-08-01 07:48 | PM.DS.1 ---
History of Present Illness History of Present Illness Date Patient Seen: 08/01/21 Time Patient Seen: 07:48 Chief complaint: Right Total Shoulder Arthroplasty *OPB* Narrative: The history and physical is contained in the chart in a previously completed note. Please refer to that note for this information. Discharge Providers Provider Date of admission: July 31, 2021 Discharge Date: 08/01/21 Primary care physician: JAY Martinez Consults: 07/27/21 09:51 Consult to Anesthesiology Routine Comment: Consulting Provider: Anesthesiologist Reason for consultation: Regional block for post operative pain control 07/31/21 14:50 Consult to Discharge Planning Routine Comment: Consult to Physical Therapy Evaluate & Treat Comment: Physician Instructions: PROM 90 FF, 0 ABD, 0 ER, IR to body, can do pendul Discharge provider: Coleman Holliday MD Summary Hospital Course Discharge Diagnosis: 1. Right shoulder osteoarthritis 2. Mild post hemorrhagic anemia Hospital Course: The patient was admitted to the hospital and taken directly to the operating room on July 31, 2021 where he underwent a right total shoulder replacement without complications. On postoperative day 1 he was examined and his block was still partially in place although it was evident that all of his nerves were in continuity. He was comfortable and ready for discharge home. Status at Discharge Cognitive/behavioral status at discharge: at baseline, oriented Functional status at discharge: independent ambulation Overall status at discharge: patient is progressing back to baseline Exam Vital Signs (past 8 hours): - 08/01/21 00:15 Temperature 97.7 F Pulse Rate 79 Respiratory Rate 18 Blood Pressure 101/53 L Pulse Oximetry 91 Oxygen Delivery Method Room Air Oxygen Flow Rate 0 Narrative Exam Narrative: Right shoulder dressing is intact with no drainage on the bandage. Light touch is reduced but present in the axillary, musculocutaneous, radial and median nerve distribution. It is intact in the ulnar nerve distribution. He can extend his thumb, abduct his thumb, abduct his fingers and fire his deltoid. Elbow flexion is still absent. Objective Labs Result Diagrams: 08/01/21 05:24 Labs: Laboratory Results - last 24 hr 08/01/21 05:24 Hgb 11.9 L Hct 34.6 L PFSH Medical History (Updated 10/14/20 @ 15:53 by Lynn Vanessa RN) Elevated cholesterol with high triglycerides Hypertension Primary osteoarthritis, left shoulder Sleep apnea with use of continuous positive airway pressure (CPAP) Surgical History (Updated 07/24/21 @ 07:57 by Vaishali Castillo RN) History of open reduction and internal fixation (ORIF) procedure History of total replacement of left shoulder joint (10/23/20) Status post cataract extraction of both eyes with insertion of intraocular lens Social History household members: spouse Smoking Status: Never smoker alcohol intake: never Discharge Assessment & Plan Assessment and Plan Assessment: Stable postoperative day 1 status post right total shoulder replacement. His block is still partially in place. Either sensation or motor is intact for each of the nerves which suggests they are in continuity. He has a mild post hemorrhagic anemia that should not require specific treatment. Plan of Treatment: Discharged home today with follow-up in my office in 2 weeks. Discharge medications for oxycodone and hydroxyzine have been called into the pharmacy. In addition he has been instructed in the use of aspirin for DVT prophylaxis and the use of ibuprofen and Tylenol for additional pain control. Discharge Plan Discharge Plan Patient Disposition: Home Discharge orders & Medications Discharge Orders: Discharge (Order); Ordered 08/01/21 Ordered By: Coleman Holliday Prescriptions: New acetaminophen 325 mg Tablet 650 mg PO TID 30 Days Qty: 180 0RF aspirin 81 mg Tablet,Delayed Release (Dr/Ec) 81 mg PO BID 42 Days Qty: 84 0RF ibuprofen 400 mg Tablet 400 mg PO Q4HR 30 Days 0RF oxycodone 5 mg Tablet 5 mg PO Q4H PRN (Reason: Pain, Moderate (4-6)) Qty: 40 0RF hydroxyzine pamoate 25 mg Capsule 25 mg PO Q6HR PRN (Reason: Nausea) Qty: 30 0RF Continued multivitamin Tablet 1 tab PO DAILY 0RF fenofibrate micronized 200 mg Capsule 200 mg PO DAILY 0RF losartan 25 mg Tablet 25 mg PO DAILY 0RF Label Comments: Takes at night hydrochlorothiazide 25 mg Tablet 25 mg PO DAILY 0RF glucosamine-chondroitin [Osteo Bi-Flex] 250-200 mg Tablet 2 tab PO DAILY 0RF metoprolol succinate 100 mg Capsule,Sprinkle,Er 24hr 100 mg PO DAILY 0RF Label Comments: Takes at night metformin 850 mg Tablet 850 mg PO BID 0RF Discontinued acetaminophen 650 mg Tablet Extended Release 1,300 mg PO BID 0RF aspirin [Aspirin Low Dose] 81 mg Tablet,Delayed Release (Dr/Ec) 81 mg PO DAILY 0RF Follow up/Referrals: Radha Bellamy ARNP [Primary Care Provider] - Coleman Holliday MD [Physician] - 2 Weeks Diet/Activity/Treatments Diet: Diet as Tolerated and Carb-consistent/Diabetic Activity: You may use your right arm in front of your body below shoulder level to lift less than 1-2 lb. Cold/Heat Therapy: Apply ice to the right shoulder for 15 minutes every hour as needed for pain control. Skin/Wound/Dressing Care Report to your healthcare provider any signs of infection, such as:: chills, fever, night sweats, increased pain, unusual drainage and unusual redness Dressing: You may shower with your dressing in place. Please contact the office if the dressing becomes saturated with either water or blood to have it evaluated. Visit Report/Discharge Packet Instructions: DI for Shoulder Replacement Stand Alone Forms: Surgery Discharge Discharge Data Primary Care Provider: Radha Bellamy Attending Provider: Coleman Holliday Quality VTE Deep Vein Thrombosis/Pulmonary Embolism Present on Admission: No
[2021-08-01 07:54] VITALS: BP 102/57; PULSE 71; RESP 15; TEMP 37; O2SAT 95
[2021-08-01] MEDS: METOPROLOL ER 50 MG TABLET 100 MG PO (08:36)
[2021-08-01] MEDS: FENOFIBRATE, MICRONIZED 67 MG CAPSULE 201 MG PO (08:36)
[2021-08-01] MEDS: ACETAMINOPHEN 325 MG TABLET 650 MG PO (08:37)
[2021-08-01] MEDS: ASPIRIN EC 81 MG TABLET PO (08:39)
[2021-08-01] MEDS: METFORMIN 850 MG TABLET PO (08:39)
[2021-08-01] MEDS: DOCUSATE 100 MG CAPSULE PO (08:39)
--- NOTE | 2021-08-01 08:57 | CM.DANOTE ---
DCP: Case received, EMR reviewed and met with patient. Introduced self and role. Was able to obtain information regarding patient's baseline activity status prior to hospitalization. DCP assessment completed with information currently available. Patient is a 66 year old male who admitted yesterday morning to the care of the orthopedic team. PCP: Dr. Radha Bellamy. Payer: confirmed: Medicare/[employer]. Patient came to the hospital via private vehicle for a surgical procedure. He had right total shoulder arthroplasty. Patient has history of osteoarthritis of his right shoulder. Met with patient in his room. He is alert and oriented, pleasant. He was sitting up on the edge of his bed having breakfast, his right arm in a sling. Confirmed with patient that he resides in [place] with his spouse, Danni. 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 He is independent at his baseline, and drives. Patient indicated, his will be able to assist him when he goes home. He will be working with the therapy team before discharge. P: Patient is to be discharged home today after working with P.T/O.T. Snehal Canseco RN/Grey Washer Discharge Planning/Care Management CM Discharge Assessment Start: 08/01/21 08:56 Freq: Status: Active Protocol: Document 08/01/21 08:56 (Rec: 08/01/21 08:57 [id number]) Discharge Planning Assessment Assigned Syrup Mixer Assistant Snehal Canseco RN/Grey Washer Advance Directives? Yes Advance Directives on File No History Provided By Patient,Medical Record Prior Living Arrangements House Household Members spouse Type of transporation used prior to Drives own vehicle admit Independent with ADL's Yes Is patient alert and oriented? Yes Caregiver for Another No Patient/Family Preference OP PT Therapy Barriers to Discharge No Discharge Plan Home Transportation Arrangement Spouse Referrals Initiated None needed Whiteboard Updated in Patient Room with Yes name and ext. # of Syrup Mixer Assistant Review Status In Process Next Review Type Continued Stay Review Pre-Anesthesia Assessment Start: 07/24/21 07:50 Freq: Status: Active Protocol: Document 07/24/21 07:50 CAB (Rec: 07/24/21 09:37 CAB [id number]) Pre-Anesthesia Assessment PAC Comment Retired nurse insurance sales representative Preferred Name Castillo Patient Information Reviewed Via Phone Assessment Assessment Completed With Patient Comment Labs/EKG @ 07/14/21, COVID screen @ [facility] 07/28/21 Primary Care Provider Radha Bellamy Seen Specialist in Last 12 Months Yes Specialist Seen Orthopedist,Sleep specialist Primary Language Mohawk Preferred Language Mohawk Post Graduate Intern Required No Height 5 ft 8 in Weight 215 lb Body Mass Index (BMI) 32.6 Hearing Ability Normal Visual Assist None Dentition Type Teeth, Natural Present Barriers to Learning None Other Aids No Hx Anesthesia Reactions No Hx Family Anesthesia Reaction No Hx Malignant Hyperthermia No Hx Blood Transfusions No Hx Blood Transfusion Reaction No Anesthesia Review Requested No Bleacher Pulp No alcohol intake never Smoking Status Never smoker Substance Use Type does not use Pain Present Pain Reported Musculoskeletal Symptoms Joint Pain,Limited Range of Motion History of Falling (Recent or History of No ) Patient is completely paralyzed or No completely immobile Mental Status Oriented to own ability Is patient on oxygen? No Does patient have SANTOS/SOB No Hx Sleep Apnea Yes CPAP/BIPAP use prescribed and used routinely Will Bring CPAP/BIPAP DOS Yes Currently Taking a Beta Aliza Yes: Metoprolol Can You Climb a Flight of Stairs Without Yes SOB Hx Chest Pain No Hx SOB No Hx Syncope or Dizziness No Anti-Coagulant Therapy Yes: ASA 81mg daily Has a Landscape Architect No Cardiac Testing No Hx Pacemaker/ICD No Pacemaker Rep Required? No Cardiac Clearance Received Not Applicable Comment Active, goes to gym 3x/week Diet Type At Home Regular dysphagia No Bladder Pattern Nocturia Urinary Catheter Present No Hx Urinary Self Catheterization No Diabetes No HgbA1C 5.6 Date 07/14/21 Hx Drug Resistant Organism No Presence of External or Internal Medical Yes: hardware left humerus, Devices Yannick IOLs, left shoulder, CPAP Have you had any close contact with No someone diagnosed with COVID-19? Received a COVID vaccine? Yes: Booster Received all doses? Yes Marital Status Lives With spouse Prior Living Arrangements House Number of Floors (Floors) One Floor Support System Child/Children,Spouse Patient Discharge Plan Description Return Home Comment Pt advised overnight length of stay per surgeon Feels Safe in Current Environment Yes Been Physically Hurt or Threatened By a No Person in Current Environment Do you have thoughts of harming yourself None or others? Are you currently considering suicide? No Do you have a plan to hurt yourself or No Plan others? Do You Have Any Spiritual Beliefs That No May Affect Your HC Choices? Do You Have Any Cultural Practices That No May Affect Your HC Choices? Comment [facility] Who Can We Speak to About Patient's Care Family, friends Identifying Code for Release of Patient Declines to issue Information Health Care Proxy/Next of Kin Pranav Reza Health Care Proxy Emergency Contact Name Pranav Reza Emergency Contact Advance Directives? Yes Advance Directives on File No Requested Patient Bring Advanced Yes Directives DOS Power of In Service Education Teacher Yes Power of In Service Education Teacher Name karina Reza Power of In Service Education Teacher PAC Instructions Bring CPAP/BIPAP,Medications to take/avoid,Sturdy shoes/ comfortable clothes,Do not bring valuables and remove jewelry
--- NOTE | 2021-08-01 09:15 | PT.IIE ---
Current Diagnoses Primary osteoarthritis, right shoulder (08/01/21) Surgery Performed Operation Date: 07/31/21 12:30 Actual Procedures p Total Shoulder Arthroplasty(Right) - Coleman Holliday MD Medical History (Last Updated 10/14/20 @ 15:53 by Lynn Vanessa RN) Elevated cholesterol with high triglycerides Hypertension Primary osteoarthritis, left shoulder Sleep apnea with use of continuous positive airway pressure (CPAP) Physical Therapy Inpatient Evaluation/Re-Eval M1 PT/OT-IP Prior Functional Status Start: 08/01/21 11:40 Freq: NEEDED Status: Active Protocol: Document 08/01/21 09:15 AB (Rec: 08/01/21 11:51 AB [id number]) Medical Review Prior Functional Status Medical History Reviewed Yes Communication ablet to make neds known Mobility and Gait pt stated that he is independent with all mobilities and ambulation withotu AD Social History Household Members spouse Living Arrangements House Number of Floors (Floors) One Floor Number of Stairs To Enter/Railing? 3 steps without rails to enter the house Home Environment Standard Height Toilet,Walk in Shower,Built-In Shower Seat M2 PT-IP Current Condition Start: 08/01/21 11:40 Freq: NEEDED Status: Active Protocol: Document 08/01/21 09:15 AB (Rec: 08/01/21 11:51 AB [email or web address]) Physical Therapy Current Condition Current Condition Evaluation Date 08/01/21 Treatment Diagnosis s/p R TSA; difficulty in walking Onset Date 07/31/21 M3 PT-IP Subjective Start: 08/01/21 11:40 Freq: NEEDED Status: Active Protocol: Document 08/01/21 09:15 AB (Rec: 08/01/21 11:51 AB [email or web address]) Subjective Physical Therapy Visit Type Type Initial Evaluation Visit Start Time 09:15 Visit Stop Time 09:40 Total Visit Minutes 25 Number of TECHNICAL SALES DIRECTOR Visits 0 Physical Therapy Visit Comments Patient Comments agreed to do PT Therapy Pain Assessment Pain When Pain Assessed At Rest Pain Present Pain Present Denied Pain M4 PT-IP Mobility and Gait Start: 08/01/21 11:40 Freq: NEEDED Status: Active Protocol: Document 08/01/21 09:15 AB (Rec: 08/01/21 11:51 AB [id number]) PT-Bed Mobility Assessment Supine to Sit Supine to Sit Standby Assistance Sit to Supine Sit to Supine Standby Assistance PT-Transfer Assessment Sit to and From Stand Sit to and from Stand Standby Assistance Equipment Transfer Assistive Device None Transfers Transfer Destination Bed,Chair Transfer Technique ambulated Transfer Ability Level of Assist Standby Assistance Comments Mobility Comments pt educated on shoulder precautions. Pt stated that he had his L shoulder sugery last oct and recalls his precautions and sling management. stated that his spouse is also aware of his precautions and knows how to manage his sling. assisted pt with sling management. pt still does not have RUE motor control and still has numbness on RUE. educated on HEP and pendulum. pt ambulated in room without AD SBA and demonstrated bed mobility SBA. ambulated out in the hallway without AD SBA and completed up/down steps without AD SBA. ambulated back to his room. left pt seated on chair. call light and table placed within reach. Gait Assessment Gait Gait Assistance Required: Standby Assistance Distance (Feet) 200 Able to Maintain Weight Bearing Status Yes During Gait Assistive Devices Assistive Device None Orthotic/Prosthetic Devices or Brace: Yes Factors Limiting Gait Function Factors Limiting Gait Function Decreased Strength,Limited Range of Motion,Poor Balance, Poor Safety Awareness Stair Climbing Assessment Evaluation Level of Assist On Stairs Standby Assistance Devices Stair Climbing Assistive Devices None Technique/Endurance Stair Climbing Direction Ascend and Descend Stair Climbing Technique Step to Step Number of Steps Climbed 3 Query Text: Stair Climbing Set # Repetitions (reps) 1 PT-Balance Assessment Sitting Balance and Reactions Static Sitting Balance Ability Normal Dynamic Sitting Balance Ability Normal Standing Balance and Reactions Static Standing Balance Ability Good Dynamic Standing Balance Ability Good Device Used without AD M5 PT-IP Objective Assessments Start: 08/01/21 11:40 Freq: NEEDED Status: Active Protocol: Document 08/01/21 09:15 AB (Rec: 08/01/21 11:51 AB [id number]) Orientation Orientation/Cognition Level of Alertness Alert Orientation Name,Age,Birthday,Month,Date, Year,Day of Week,Place, Situation Language Function Ability No Deficits Noted Safety Awareness Understands Safety Issues Memory Description No Deficits Noted Gross Range of Motion Lower Extremity ROM Assessment Within Functional Limits Strength Lower Extremity Strength Assessment Within Functional Limits Coordination Assessment Gross Coordination Gross Coordination WNL Sensation Assessment Sensation Sensation Description Numbness Comments Sensation Comments RUE numbness Other Assessments Other Other Assessments still does not have motor control on RUE M6 PT-IP Treatment Start: 08/01/21 11:40 Freq: NEEDED Status: Active Protocol: Document 08/01/21 09:15 AB (Rec: 08/01/21 11:51 AB [id number]) Physical Therapy Treatment Exercises Exercises Elbow Flexion/Extension,Wrist ROM,Hand ROM Education Education Provided Precautions,Weight Bearing Status,Post-Op Packet,Safety M7 PT-IP Assessment and Plan Start: 08/01/21 11:40 Freq: NEEDED Status: Active Protocol: Document 08/01/21 09:15 AB (Rec: 08/01/21 11:51 AB [id number]) PT Summary Assessment and Plan Potential Rehabilitation Potential Good Status of Condition at Evaluation Stable Summary Impairments Pain,ROM,Strength,Balance, Coordination,Sensation,Tone, Cognition,Bed Mobility, Transfers,Gait,Activity Tolerance Assessment Summary pt requiring SBA with mobility and plans to go home today and spouse will assit pt at home. Pt state that he had his L shoulder surgery just last oct and both him and his spouse are aware of managing the sling and precautions. pt may go home when medically stable. Goals Bed Mobility Goal Independent Transfer Goal Independent Gait Goal Independent Gait Distance 300 Other Goals up/down 3 steps without rails mod I Days to Meet Goals 3 Frequency of Treatment Frequency Of Treatment Twice a Day Treatment Plan Physical Therapy Treatment Plan Bed Mobility Training,Transfer Training,Gait Training, Therapeutic Exercise,Balance Retraining,Post Op Education, Discharge Planning,Hot or Cold Pack,Neuromuscular Re-ed, Coordination Retraining,Manual Therapy Precautions Shoulder Precautions Sling,PROM,Internal Rotation to Body,No External Rotation, No Abduction,Forward Flexion to 90 degrees,Pendulums Weight Bearing Status Weight Bearing Status Non-Weight Bearing Allowed Weight Bearing Amount (enter % RUE NWB or #) (%) Recommendations To Nursing Amount of Assist Needed Standby Assistance Discharge Recommendations PT Discharge Recommendations Home with Assistance, Outpatient PT Transportation Needs at Discharge Private Vehicle
--- NOTE | 2021-08-01 09:31 | PC.NURSE ---
0800- Patient is alert and oriented x3, he states that his pain is a 3/10 when moving. Given ibuprofen and tylenol for discomfort. R.shoulder dressing has an aquacel that is cdi with a sling in place. Patient will most likely go home today.
== END 2021-08-01 11:30 | disposition home or self-care (01) | DRG 483 ==
LOC: OR 11:29 → AC 11:29
PROVIDERS: Admitting Provider Orthopaedic Surgery; PCP Nurse Practitioner; Referring Provider Orthopaedic Surgery; Visit Provider Orthopaedic Surgery
PROC: 0RQJ0ZZ Repair Right Shoulder Joint, Open Approach (ICD-10-PCS; CPT 23472; principal; 2021-07-31 12:30)
DX: M19.011 Primary osteoarthritis, right shoulder (principal); M25.711 Osteophyte, right shoulder; I10 Essential (primary) hypertension; E11.9 Type 2 diabetes mellitus without complications; E78.5 Hyperlipidemia, unspecified; Z20.822 Contact with and (suspected) exposure to COVID-19; Z79.84 Long term (current) use of oral hypoglycemic drugs
CPT/HCPCS: 36415; 64450; 73020; 82962; 85014; 85018; 97161; C1776; J0171; J0690; J1100; J1815; J2250; J2405; J2704; J3010